=== PATIENT | male | born 1985 | race Caucasian/White ===

== ENCOUNTER 2016-12-20 19:48 | Emergency (ER) | payer OTHER ==
[2016-12-20 20:07] VITALS: BP 123/80
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
[2016-12-20] MEDS ORDERED: DIPH,PERTUSS(ACELL),TET VAC/PF 0.5 ML DISP.SYRIN IM ONE (20:12)
[2016-12-20] MEDS ORDERED: KETOROLAC TROMETHAMINE 60 MG/2 ML VIAL IM ONE (20:13)
--- NOTE | 2016-12-20 22:18 | Diagnostic Imaging Report ---
[place]~ [facility] [address] [facility] [address] [address] ~ ~ ~ ~ Report Submission Date: Dec 20, 2016 8:44:45 PM CDT Patient ~ Study Name: JOANIE GANT ~ Date: Dec 20, 2016 8:30:06 PM CDT ~ Modality Type: CR Gender: M ~ Description: LOWER EXTREMITY : 84 ~ Institution: [facility] Physician: [place] ~ ~ ~ ~ Right knee 3 views History: Pain after injury Findings: The right knee is unremarkable without fracture, dislocation, arthropathy, or joint effusion. ~ Electronically signed on Dec 20, 2016 8:44:45 PM CDT by: Joanie GARCIA
--- NOTE | 2016-12-20 22:19 | Diagnostic Imaging Report ---
[place]~ [facility] [address] [facility] [address] [place] [address]. [id number] ~ ~ ~ ~ Report Submission Date: Dec 20, 2016 8:45:25 PM CDT Patient ~ Study Name: JOANIE GANT ~ Date: Dec 20, 2016 8:34:04 PM CDT ~ Modality Type: CR Gender: M ~ Description: PELVIS : 84 ~ Institution: [facility] Physician: [place] ~ ~ ~ ~ Right hip 2 views History: Pain after injury Findings: The right hip is unremarkable without fracture, dislocation, arthropathy, or focal bone lesion. ~ Electronically signed on Dec 20, 2016 8:45:25 PM CDT by: Joanie GARCIA
[2016-12-21 05:32] LABS: APPEARANCE,URINE CLEAR (CLEAR); COLOR,URINE YELLOW (YELLOW); OCCULT BLOOD,URINE NEGATIVE (NEGATIVE); PH URINE 5.5 (5.0 - 8.0); UROBILINOGEN URINE 0.2 Eu (0.2-1.0)
== END 2016-12-20 21:06 | disposition home or self-care (01) ==
LOC: ED 19:48
DX: Y99.9 Unspecified external cause status (principal)
CPT/HCPCS: 73502; 73562; 81002; 90715; J1885; 90471; 96372; 99283

== ENCOUNTER 2017-09-21 00:59 | Emergency (ER) | payer OTHER ==
[2017-09-21 01:31] VITALS: BP 135/61
[2017-09-21] MEDS ORDERED: HYDROcodone /APAP 5/325 1 EACH TABLET PO ONE (02:03)
--- NOTE | 2017-09-21 02:06 | Diagnostic Imaging Report ---
[facility] [address] [facility] 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 NO HX OF SURGERY OR FRACTURES. Findings: Examination right foot in plantar, lateral and oblique views fails to demonstrate evidence of fracture, dislocation or other bone or joint pathology. Electronically signed on Sep 21, 2017 1:55:27 AM COAL PIPELINE OPERATOR by: Ricki GARCIA
--- NOTE | 2017-09-21 02:27 | ED Physician Documentation ---
Lower Extremity Injury - HISTORIAN Historian: patient, spouse, child - HPI Stated Complaint: right foot pain Chief Complaint: Lower Extremity Injury Additional Information: pt out of town w/his orginazation in [place]-worked friday past for 12 hrs. eight of those hrs wers squation down on feet and toes. the next morning- friday there was sig sharp pain at base of 5th rt toe. this pain continued all week. he returns to the ed this am w/continued severe pain. xray failed to reveal fracture but we must consider there is a stress fracture that will not reveal itself until callous begins to form. we gave himl pain meds and suggested a walking BOOT BUT HE DECLINED. Onset: days ago (6) Where: work Severity: moderate, severe Associated Symptoms:: swelling. denies: numbness distally, snapping sensation, popping sensation, unable to bear weight (bus marked pain evento light touch) Modifying Factors:: pain on movement - ROS CONST: no problems CVS/RESP: none GI/: denies: problems urinating, nausea, vomiting MS/SKIN/LYMPH: none NEURO: denies: headache, head injury - PAST HX Past History: none Allergies/Adverse Reactions: Allergies Allergy/AdvReac Type Severity Reaction Status Date / Time No Known Allergies Allergy Verified 09/21/17 01:21 Home Medications: Ambulatory Orders Medication Instructions Recorded NK [NK] 12/20/16 - SOCIAL HX Smoking History: non-smoker Alcohol Use: occasionally Drug Use: none - FAMILY HX Family History: none - VITAL SIGNS Vital Signs: Vital Signs Temp Pulse Resp BP Pulse Ox 84 16 135/61 98 09/21/17 01:00 09/21/17 01:00 09/21/17 01:00 09/21/17 01:00 - REVIEWED ASSESSMENTS Nursing Assessment Reviewed: Yes Vitals Reviewed: Yes ED Results Lab/Radiology - Radiology Radiology Impressions: no fracture se3en by me and none seen by radiologists - Orders Orders: ED Orders Category Date Time Status Walking Boot 1T Care 09/21/17 02:18 Ordered FOOT 3 VIEWS OR MORE [RAD] Stat Exams 09/21/17 Completed FOOT 3 VIEWS OR MORE [RAD] Stat Exams 09/21/17 Stop Req FOOT 3 VIEWS OR MORE [RAD] Stat Exams 09/21/17 Stop Req HYDROcodone /APAP 5/325 [Thomas 5/325] Med 09/21/17 02:03 Discontinued 3 each PO NOW ONE Lower Extremities Injury Phy - Physical Exam General Appearance: moderate distress Gait: limited by pain Neuro/Vascular/Tendon: no vascular compromise, motor nml, sensation nml, ROM limited by pain. No: abnml color, abnml warmth, abnml cap refill, pulse deficit , sensory deficit, motor deficit, tendon injury, ROM nml Head/ENT: nml inspection Neck/Back: nml inspection Resp/CVS: chest non-tender, lungs clear, reg. rate & rhythm Abdomen: non-tender Discharge Clincal Impression: probable stress fracture rt 5thtoe Referrals: Primary Doctor,No [Primary Care Provider] - 2 Days Comments: pt says "I MUST WORK" Condition: Fair Disposition: 01 HOME, SELF-CARE Decision to Admit: NO Decision Time: 02:32
== END 2017-09-21 02:20 | disposition home or self-care (01) ==
LOC: ED 00:59
DX: M79.671 Pain in right foot (principal)
CPT/HCPCS: 73630; 99283; A9270

== ENCOUNTER 2018-04-03 08:01 | Emergency (ER) | payer SELFPAY ==
--- NOTE | 2018-04-03 08:07 | ED Physician Documentation ---
General Adult - HISTORIAN Historian: patient - HPI Stated Complaint: area of skin concern left axillia Chief Complaint: Skin Rash Onset: days ago (4) Timing: still present Severity: mild Further Comments: yes (He states a few days ago he was in the outdoors and did note several ticks were removed from his body. He states two days ago he started to have pain in the armpit and then yesterday he did "squeeze and a bunch of junk squirted out" He denies a fever. No other complaints.) Last known Well Code/Unknown Code: Unknown - ROS CONST: denies: fever, recent illness EYES/ENT: none CVS/RESP: none GI/: none MS/SKIN/LYMPH: rash NEURO/PSYCH: denies: headache, fainting - PAST HX Past History: none Surgeries/Procedures: none Immunizations: UTD Allergies/Adverse Reactions: Allergies Allergy/AdvReac Type Severity Reaction Status Date / Time No Known Allergies Allergy Verified 04/03/18 08:23 Home Medications: Ambulatory Orders Medication Instructions Recorded NK [NK] 12/20/16 - SOCIAL HX Smoking History: cigarettes Alcohol Use: none Drug Use: none - FAMILY HX Family History: No - VITAL SIGNS Vital Signs: Vital Signs Temp Pulse Resp BP Pulse Ox 135/61 09/21/17 02:20 - REVIEWED ASSESSMENTS Nursing Assessment Reviewed: Yes Vitals Reviewed: Yes General Adult Physical Exam - PHYSICAL EXAM GENERAL APPEARANCE: no distress EENT: eye inspection normal NECK: normal inspection RESPIRATORY: no resp distress, chest non-tender, breath sounds normal CVS: reg rate & rhythm, heart sounds normal, equal pulses, no murmur ABDOMEN: soft, normal bowel sounds, no distension BACK: normal inspection SKIN: warm/dry, other (left axillia with two red raised cellulitis areas . NO drainge noted. areas had been opened. Mild redness extending into the lateral side of the left arm. He did note the area. and the edges of the redness for comparison on further extension . One area measures 2 x 3 cm and no area for drainge. Second less than 1 cm round mildly raised not firm ) EXTREMITIES: non-tender, normal range of motion, no evidence of injury NEURO: oriented X3 Discharge Clincal Impression: Abscess Referrals: Primary Doctor,No [Primary Care Provider] - 2 Days Additional Instructions: 1. watch area for further redness 2. Warm pack 3. Doxycycline 100 mg Take 1 by mouth BID x 10 days 4. Tramodol 50 mg take 1 by mouth every 8 hours as needed for pain 5. Medrol Dose pack as directed 6. Tylenol or Ibuprofen as directed for mild pain 7. See PCP in 2-4 days for continued issues 8. Return to ER for added concerns Condition: Stable Disposition: 01 HOME, SELF-CARE Decision to Admit: NO Date of Decison to Admit: 04/03/18 Decision Time: 08:27
[2018-04-03 08:34] VITALS: BP 120/72
== END 2018-04-03 08:33 | disposition home or self-care (01) ==
LOC: ED 08:01
DX: L02.91 Cutaneous abscess, unspecified (principal)
CPT/HCPCS: 99282

== ENCOUNTER 2018-09-25 12:50 | Emergency (ER) | payer SELFPAY ==
[2018-09-25 15:04] VITALS: BP 124/74
--- NOTE | 2018-09-25 20:58 | ED Physician Documentation ---
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 Pt states that he has been sweating an orange liquid. Pt states that among the chemicals he is exposed to are: ammonium chloride, zinc chloride, a chemical known as [id number], sulfuric acid, barium chloride and many other chemicals that arrive in trucks carrying thousands of gallons. Pt handles hoses connected to these trucks and "it is messy." Pt has the orange substance under his fingernails and some cracks in the skin of his hands appear orange. The edges of his cell phone are tinged orange. He says this is from simply handling his phone. Pt does not feel ill, but is concerned that something is wrong with him sweating orange. He wakes up in the morning to find his pillow case discolored with orange.) - ROS CONST: no problems EYES/ENT: none CVS/RESP: none GI/: none MS/SKIN/LYMPH: other (sweating orange substance) - PAST HX Past History: other (rhabdomyolysis) Allergies/Adverse Reactions: Allergies Allergy/AdvReac Type Severity Reaction Status Date / Time No Known Allergies Allergy Verified 04/03/18 08:23 Home Medications: Ambulatory Orders Medication Instructions Recorded NK 12/20/16 - SOCIAL HX Smoking History: cigarettes - FAMILY HX Family History: No - VITAL SIGNS Vital Signs: Vital Signs Temp Pulse Resp BP Pulse Ox 98.0 F 90 16 124/74 97 09/25/18 13:07 09/25/18 15:03 09/25/18 15:03 09/25/18 15:03 09/25/18 15:03 - REVIEWED ASSESSMENTS Nursing Assessment Reviewed: Yes Vitals Reviewed: Yes Progress - Progress Progress: Contacted poison control: per [employer] developer no known etiology of orange discoloration based on chemicals pt can name. d/w [facility] dermatology, Dr. Akiko Lock: chromhydrosis, often idiopathic; suggest Total and direct Bili. May give fluids. Pt needed to leave ER prior to contact with dermatology. Pt told about having blood tests including Total and direct Bili. (a send-out lab). Pt intending to f/u [facility] General Adult Physical Exam - PHYSICAL EXAM GENERAL APPEARANCE: no distress EENT: eye inspection normal, pharynx normal NECK: normal inspection, supple RESPIRATORY: no resp distress, chest non-tender, breath sounds normal CVS: reg rate & rhythm, heart sounds normal BACK: normal inspection, no CVA tenderness SKIN: other (orange discoloration of nail beds) EXTREMITIES: non-tender, normal range of motion, no evidence of injury NEURO: oriented X3, motor nml, sensation nml Discharge Clincal Impression: chromohydrosis Referrals: Primary Doctor,No [Primary Care Provider] - Condition: Stable Disposition: 01 HOME, SELF-CARE Decision to Admit: NO Decision Time: 15:05
== END 2018-09-25 14:59 | disposition home or self-care (01) ==
LOC: ED 12:50
DX: L75.1 Chromhidrosis (principal)
CPT/HCPCS: 99281